=== PATIENT | female | born 1975 | race Asian ===

== ENCOUNTER 2017-08-09 11:30 | Emergency (ER) | payer MEDICAID ==
[~2017-08-09] VITALS: Ht 160 cm; Wt 57.0 kg
[2017-08-09 11:50] VITALS: Ht 160 cm; Wt 57.0 kg
[2017-08-09] MEDS ORDERED: ONDANSETRON 4 MG INJ IV STA (13:12)
[2017-08-09] MEDS ORDERED: KETOROLAC 30 MG INJ IV STA (13:12)
--- NOTE | 2017-08-09 13:20 | ERD ---
ER Documentation Chief Complaint Date/Time DATE: 08/09/17 TIME: 13:08 Chief Complaint right sided ap starting this mornig; vomiting HPI 42-year-old female who presented emergency department for right-sided abdominal pain started last night and got worse this morning. Patient stated that she vomited 4 times for the last 24 hours with yellowish emesis. Denies headache, dizziness, blurred vision, neck pain, shoulder pain, chest pain , back pain, constipation, diarrhea, urinary symptoms, recent exposure to any illness, loss of bowel and bladder control, fever, chills. No known drug allergies. Past medical history of hypertension. No surgical history. Medication: Amlodipine. Social: Not working at this time. Denies smoking, use of alcohol, use of illegal drugs. LMP was July 17, 2017 A0. ROS All systems reviewed and are negative except as per history of present illness. Medications Home Meds Active Scripts Cephalexin* (Keflex*) 500 Mg Capsule, 500 MG PO QID for 7 Days, CAP Prov:PASILABANLELO F 08/09/17 Tamsulosin Hcl* (Flomax*) 0.4 Mg Cap.er.24h, 0.4 MG PO DAILY, #30 CAP Prov:JUANITAILABANLELO F 08/09/17 Acetaminophen* (Tylophen*) 500 Mg Capsule, 1 CAP PO Q6H Y for PAIN AND OR ELEVATED TEMP, #20 CAP Prov:PASILABANLELO F 08/09/17 Ondansetron Hcl* (Zofran*) 4 Mg Tablet, 4 MG PO Q8H Y for NAUSEA AND/OR VOMITING , #30 TAB Prov:PASILABANLELO F 08/09/17 Ibuprofen* (Motrin*) 600 Mg Tab, 600 MG PO Q8, #30 TAB Prov:JUANITAILABANLELO F 08/09/17 Hydrocodone/Acetaminophen ([place] 5-325 Tablet) 1 Each Tablet, 1 TAB PO Q6H Y for PAIN, #20 TAB Prov:LELO SHAH F 08/09/17 Physical Exam Vitals Vital Signs Date Time Temp Pulse Resp B/P Pulse Ox O2 Delivery O2 Flow Rate FiO2 08/09/17 18:20 98.1 67 18 121/71 100 Room Air 08/09/17 11:50 97.1 72 18 136/77 100 Physical Exam Const: [] Head: Atraumatic Eyes: Normal Conjunctiva ENT: Normal External Ears, Nose and Mouth. Neck: Full range of motion..~ No meningismus. Resp: Clear to auscultation bilaterally Cardio: Regular rate and rhythm, no murmurs Abd: Soft, non distended. Normal bowel sounds. There is right lower abdominal tenderness light and deep palpation. Patient has difficulty walking due to abdominal pain. Patient is unable to jump due to right-sided abdominal pain. Skin: No petechiae or rashes Back: No midline or flank tenderness Ext: No cyanosis, or edema Neur: Awake and alert Psych: Normal Mood and Affect Result Diagram: 08/09/17 1335 08/09/17 1335 Results 24 hrs Laboratory Tests Test 08/09/17 13:35 White Blood Count 14.210^3/ul Red Blood Count 4.5510^6/ul Hemoglobin 14.4g/dl Hematocrit 43.0% Mean Corpuscular Volume 94.5fl Mean Corpuscular Hemoglobin 31.6pg Mean Corpuscular Hemoglobin Concent 33.5g/dl Red Cell Distribution Width 11.8% Platelet Count 26668^3/UL Mean Platelet Volume 8.7fl Neutrophils % 94.0% Lymphocytes % 4.2% Monocytes % 1.2% Eosinophils % 0.0% Basophils % 0.3% Nucleated Red Blood Cells % 0.0/100WBC Neutrophils # (Manual) 13.410^3/ul Lymphocytes # 0.610^3/ul Monocytes # 0.210^3/ul Eosinophils # 0.010^3/ul Basophils # 0.010^3/ul Nucleated Red Blood Cells # 0.010^3/ul Urine Color YELLOW Urine Clarity SLIGHTLY CLOUDY Urine pH 7.0 Urine Specific [place] 1.014 Urine Ketones 2+mg/dL Urine Nitrite NEGATIVEmg/dL Urine Bilirubin NEGATIVEmg/dL Urine Urobilinogen NEGATIVEmg/dL Urine Leukocyte Esterase 2+Christal/ul Urine Microscopic RBC > 182/HPF Urine Microscopic WBC 53/HPF Urine Squamous Epithelial Cells FEW/HPF Urine Hemoglobin 3+mg/dL Urine Glucose NEGATIVEmg/dL Urine Total Protein NEGATIVEmg/dl Sodium Level 139mmol/L Potassium Level 4.2mmol/L Chloride Level 105mmol/L Carbon Dioxide Level 23mmol/L Anion Gap 15 Blood Urea Nitrogen 13mg/dl Creatinine 0.71mg/dl Glucose Level 111mg/dl Calcium Level 9.7mg/dl Total Bilirubin 0.5mg/dl Direct Bilirubin 0.00mg/dl Indirect Bilirubin 0.5mg/dl Aspartate Amino Transf (AST/SGOT) 28IU/L Alanine Aminotransferase (ALT/SGPT) 36IU/L Alkaline Phosphatase 61IU/L Total Protein 8.8g/dl Albumin 4.8g/dl Globulin 4.00g/dl Albumin/Globulin Ratio 1.20 Amylase Level 152U/L Lipase 89U/L Serum HCG, Qualitative NEGATIVE Current Medications Medications (Trade) Dose Ordered Sig/Musa Route PRN Reason Start Time Stop Time Status Last Admin Dose Admin Ketorolac Tromethamine (Toradol) 30 mg ONCE STAT IV 08/09/17 13:12 08/09/17 13:15 DC 08/09/17 13:47 Ondansetron HCl 4 mg 4 mg ONCE STAT IV 08/09/17 13:12 08/09/17 13:15 DC 08/09/17 13:45 Sodium Chloride (NS) 500 ml @ 500 mls/hr Q1H ONCE IV 08/09/17 13:30 08/09/17 14:29 DC 08/09/17 13:52 IV Flush 10 ml 10 ml STK-MED ONCE .ROUTE 08/09/17 16:47 08/09/17 16:48 DC 08/09/17 16:47 Sodium Chloride (NS) 100 ml @ ud STK-MED ONCE .ROUTE 08/09/17 16:47 08/09/17 16:48 DC 08/09/17 16:47 Iohexol 150 ml 150 ml STK-MED ONCE .ROUTE 08/09/17 16:47 08/09/17 16:48 DC 08/09/17 16:47 Ceftriaxone Sodium 50 ml @ 100 mls/hr ONCE ONCE IVPB 08/09/17 18:00 08/09/17 18:29 DC 08/09/17 17:56 Sodium Chloride (NS) 1,000 ml @ 1,000 mls/hr Q1H ONCE IV 08/09/17 18:00 08/09/17 18:59 DC 08/09/17 17:55 Procedures/MDM Examination: Please see physical examination. Disease process was explained to patient and family member. Patient family member agreed with the diagnostic test, treatment, plan of care. Urinalysis: Reviewed. Blood works: Mildly elevated white count. CT of the abdomen and pelvis with IV contrast Impression: Mild right hydroureteronephrosis with perinephric fat stranding related to 4 mm obstructing stone in the right UVJ. Additional small 3 mm nonobstructing stone in the lower pole right kidney. This case was discussed with supervising physician, Dr. Thony Magaña who agreed in my medical decision making to give the patient ceftriaxone IV and discharge the patient and have the patient follow-up with her primary care physician. Have her primary care physician follow-up with urologist. Treatment: IV insertion. Normal saline IV 500 cc bolus, Toradol IV, Zofran IV. Ceftriaxone IV. Reevaluation: Denies headache, dizziness, blurred vision, neck pain, shoulder pain, chest pain, back pain, abdominal pain, nausea, vomiting, bleeding. There is no episode of vomiting here in the emergency department. There is no right upper/right lower/epigastric/left upper/left lower abdominal tenderness to light and deep palpation. Negative Mcintosh sign. Negative on Rovsing's sign. Negative and psoas sign.No CVA tenderness. No neurological deficits. No neurovascular deficits. Differential diagnosis: Appendicitis versus cholecystitis versus pancreatitis versus diverticulitis versus nephrolithiasis versus pyelonephritis versus gastritis versus urinary tract infection Medical decision makin-year-old female who presented emergency department for right-sided abdominal pain started last night and got worse this morning. Patient stated that she vomited 4 times for the last 24 hours with yellowish emesis. Patient's complaint, patient history about her complaint, my physical findings, diagnostic test results, my consultation with my supervising physician , my reevaluation after the treatment are consistent my final diagnosis of nephrolithiasis, pyelonephritis. Prescription: [place]. Zofran. Tylenol. Flomax. Keflex. Patient and family member are made aware of the side effects and adverse reactions of the medications prescribed. Instructed on when to seek emergent and medical attention in case allergic/anaphylactic reactions or severe side effects and or adverse reactions to medications. Patient and family member verbalized understanding. Patient instructed Instructed to follow-up with his PCP in 24-48 hours. PCP to refer patient to a urologist in the next 24-48 hours. Instructed to Call 911 for chest pain, shortness of breath. Advised to come back here in ED as soon as possible for severity of symptoms which includes but not limited to: any new symptoms; shortness of breath/difficulty of breathing; cardiovascular changes; severe gastrointestinal symptoms; signs and symptoms of bleeding and or infection; signs of compartment syndrome/neurovascular changes; neurological changes/deficits. Patient and family member verbalized understanding. Upon discharge, patient is alert and oriented x 4, speaks full and clear sentences, denies pain, has no neurological deficits, has no neurovascular deficits, difficulty of breathing. Breathing even and unlabored. Lung sounds are clear to auscultation. Not in distress. Appears comfortable. Ambulatory with steady gait. Appears satisfied with care provided here in ED. Departure Diagnosis: Primary Impression: Leukocytosis Additional Impressions: Nephrolith Pyelonephritis Condition: Stable Additional Instructions: Instructed to follow-up with his PCP in 24-48 hours. PCP to refer patient to a urologist in the next 24-48 hours. Instructed to Call 911 for chest pain, shortness of breath. Advised to come back here in ED as soon as possible for severity of symptoms which includes but not limited to: any new symptoms; shortness of breath/difficulty of breathing; cardiovascular changes; severe gastrointestinal symptoms; signs and symptoms of bleeding and or infection; signs of compartment syndrome/neurovascular changes; neurological changes/deficits. Patient and family member verbalized understanding. LELO SHAH Aug 09, 2017 13:20
[2017-08-09] MEDS ORDERED: SOD CHLORIDE 0.9% 500 ML IV ONE (13:30)
[2017-08-09 13:47] LABS: BASOPHILS % 0.3 % (0.0-2.0); HEMOGLOBIN 14.4 g/dl (12.0-16.0); LYMPHOCYTES # 0.6 10^3/ul (0.8-2.9); LYMPHOCYTES % 4.2 % (15.0-51.0); MEAN CORPUSCULAR HEMOGLOBIN 31.6 pg (29.0-33.0); MEAN CORPUSCULAR HGB CONC 33.5 g/dl (32.0-37.0); MEAN CORPUSCULAR VOLUME 94.5 fl (82.0-101.0); MEAN PLATELET VOLUME 8.7 fl (7.4-10.4); MONOCYTE # 0.2 10^3/ul (0.3-0.9); MONOCYTES % 1.2 % (0.0-11.0); PLATELET COUNT 320 10^3/UL (140-415); RED BLOOD COUNT 4.55 10^6/ul (4.20-5.40); RED CELL DISTRIBUTION WIDTH 11.8 % (11.5-14.5); WHITE BLOOD COUNT 14.2 10^3/ul (4.8-10.8)
[2017-08-09 14:03] LABS: ADD UMIC YES; UR ASCORBIC ACID 20 mg/dL (NEGATIVE); UR BILIRUBIN (Dip) NEGATIVE (NEGATIVE); UR BLOOD (Dip) 3+ mg/dL (NEGATIVE); UR CLARITY SLIGHTLY CLOUDY (CLEAR); UR COLOR YELLOW (YELLOW); UR GLUCOSE (Dip) NEGATIVE (NEGATIVE); UR KETONES (Dip) 2+ mg/dL (NEGATIVE); UR LEUKOCYTE ESTERASE (Dip) 2+ Leu/ul (NEGATIVE); UR NITRITE (Dip) NEGATIVE (NEGATIVE); UR RBC > 182 /HPF (0-5); UR SPECIFIC GRAVITY (Dip) 1.014 (1.003-1.030); UR SQUAMOUS EPITHELIAL CELL FEW /HPF (FEW); UR TOTAL PROTEIN (Dip) NEGATIVE (NEGATIVE); UR UROBILINOGEN (Dip) NEGATIVE (NEGATIVE)
[2017-08-09 14:07] LABS: ALBUMIN 4.8 g/dl (3.3-4.9); ALBUMIN/GLOBULIN RATIO 1.2; BILIRUBIN,INDIRECT 0.5 mg/dl (0-1.1); BILIRUBIN,TOTAL 0.5 mg/dl (0.2-1.3); CALCIUM 9.7 mg/dl (8.4-10.2); CREATININE 0.71 mg/dl (0.44-1.00); POTASSIUM 4.2 mmol/L (3.5-5.1); TOTAL PROTEIN 8.8 g/dl (6.1-8.1)
[2017-08-09] MEDS ORDERED: IOHEXOL 300MG/ML 150 ML BTL ONE (16:47)
[2017-08-09] MEDS ORDERED: SOD CHLORIDE 0.9% 100 ML ONE (16:47)
--- NOTE | 2017-08-09 17:07 | RADRPT ---
PROCEDURE: CT Abdomen and Pelvis with contrast. CLINICAL INDICATION: Lower abdominal pain TECHNIQUE: CT scan of the abdomen and pelvis with contrast was performed on a multi-detector high- resolution CT scanner. The patient was scanned following the uncomplicated intravenous administrati on of 80 cc of Omnipaque-300. Coronal and sagittal reformatted images were obtained from the axial source images. Images were reviewed on a high-resolution PACS workstation. The total exam CTDI equal s 5.79 mGy and the total exam DLP equals 316.29 mGy-cm. One or more of the following dose reduction techniques were used: Automated exposure control. Adjustment of the mA and/or kV according to patient size. Use of iterative reconstruction technique. COMPARISON: None. FINDINGS: CT abdomen: The lung bases are remarkable for bibasilar atelectasis / minimal scarring. The heart size is saloni l, without pericardial thickening or effusion. The liver is normal in size and density without foca l mass or intrahepatic biliary dilatation. The spleen is normal in size and homogeneous in density. The stomach is partially collapsed, but is grossly unremarkable. The pancreas as visualized is no rmal. The gallbladder is unremarkable. There is no evidence for biliary dilatation. The adrenal g lands are symmetric and normal. There is mild right hydroureteronephrosis with perinephric fatty stranding related to 4 mm obstructi ng stone in the right UVJ. There is approximately 3 mm nonobstructing stone in the lower pole right kidney. There is no left urolithiasis. The aorta is of normal caliber. There is no retroperitoneal lymphadenopathy. The jenelle hepatis emerson on is clear. The bowel and mesentery, as visualized, are equally unremarkable. CT pelvis: The small bowel loops situated within the pelvis are unremarkable. The pelvic organs are normal. T he pelvic sidewalls and inguinal regions are clear. The sigmoid colon and rectum are unremarkable. No mass, or lymphadenopathy is seen. No acute inflammation is seen. There is trace free fluid in the pelvis. The bladder is normal. The surrounding osseous structures are unremarkable. No osteolyt ic or osteoblastic lesion is detected. IMPRESSION: 1. Mild right hydroureteronephrosis with perinephric fatty stranding related to 4 mm obstructing sto ne in the right UVJ. Additional small 3 mm nonobstructing stone in the lower pole right kidney. RPTAT: BB .Rui Grace MD, MD Date Time Electronically viewed and signed by .Rui Grace MD, MD on 08/09/2017 17:06 .O/
[2017-08-09] MEDS ORDERED: HYDR-906 PO (17:44)
[2017-08-09] MEDS ORDERED: ONDA4TAB8 PO (17:45)
[2017-08-09] MEDS ORDERED: ACET500C5 PO (17:45)
[2017-08-09] MEDS ORDERED: IBUP-1542 PO (17:45)
[2017-08-09] MEDS ORDERED: TAMS-14 PO (17:46)
[2017-08-09] MEDS ORDERED: CEPH-443 PO (17:46)
[2017-08-09] MEDS ORDERED: CEFTRIAXONE 1 GM/50 ML (PMX) 50 ML IVPB ONE (18:00)
[2017-08-09] MEDS ORDERED: SOD CHLORIDE 0.9% 1,000 ML IV ONE (18:00)
[2017-08-09 18:20] VITALS: BP 121/71; PULSE 67; RESP 18; TEMP 98.1
== END 2017-08-09 19:23 | disposition home or self-care (01) ==
LOC: FTE 11:30
DX: D72.829 Elevated white blood cell count, unspecified (principal); N12 Tubulo-interstitial nephritis, not specified as acute or chronic; N20.0 Calculus of kidney; I10 Essential (primary) hypertension; R11.10 Vomiting, unspecified
CPT/HCPCS: 36415; 74177; 80053; 81001; 82150; 83690; 84703; 85025; 87086; 96374; 96375; J0696; J1885; J2405; J7030; J7040; Q9967; Z7502; Z7610